=== PATIENT | male | born 1960 | race Caucasian/White ===

== ENCOUNTER 2018-05-01 09:18 | Day surgery (SDC) | payer OTHER ==
[~2018-05-01 09:18] MED LIST: FENTANYL 100MCG/2ML SOL ONE; PROPOFOL 500 MG/50 ML EMU IV ONE
[2018-05-01] MEDS ORDERED: PROPOFOL 10 MG/ML 200 MG/20 ML EMU IV ONE (10:06)
[2018-05-01 10:37] VITALS: PULSE 73
[2018-05-01 10:54] VITALS: BP 100/69; RESP 20; TEMP 97.4; O2SAT 99
== END 2018-05-01 11:32 | disposition home or self-care (01) | DRG 951 ==
LOC: SURG 09:18
PROVIDERS: ATTEND Surgery
DX: Z12.11 Encounter for screening for malignant neoplasm of colon (principal); K92.0 Hematemesis; K57.92 Diverticulitis of intestine, part unspecified, without perforation or abscess without bleeding; D50.9 Iron deficiency anemia, unspecified; R11.2 Nausea with vomiting, unspecified; K31.89 Other diseases of stomach and duodenum; Z86.010 Personal history of colon polyps; D12.2 Benign neoplasm of ascending colon; D12.3 Benign neoplasm of transverse colon; D12.5 Benign neoplasm of sigmoid colon; L53.8 Other specified erythematous conditions
CPT/HCPCS: 99001; J3010; J2704